=== PATIENT | female | born 1950 | race Hispanic/Latino ===

== ENCOUNTER 2021-05-31 20:10 | Emergency (ER) | payer MEDICARE ==
--- NOTE | 2021-05-31 21:37 | Emergency Department Report ---
ED General Adult HPI - General Chief complaint: Arrhythmia/Palpitations Stated complaint: PALPITATIONS Time Seen by Provider: 05/31/21 21:28 Source: patient, RN notes reviewed, old records reviewed Mode of arrival: Stretcher Limitations: No Limitations - History of Present Illness Initial comments: Cardiology: [facility] Past medical history: Hypertension, hyperlipidemia, asthma, tobacco use, COPD, coronary artery disease This patient is a pleasant 71-year-old female, who presents to the ER today with a complaint of painless sensation of heart racing. It is now resolved. The patient feels like she is at her baseline. Denies travel, surgery, immobilization, DVT/PE risk factors. She has not started any new or different medications. She specifically denies chest pain, new/different shortness of breath, vomiting, diaphoresis. She endorses that she feels like she is back to her baseline -: Sudden Consistency: now resolved Improves with: none Worsens with: none Associated Symptoms: denies other symptoms - Related Data Home Medications Medication Instructions Recorded Confirmed Last Taken Atorvastatin Calcium [Lipitor] 20 mg PO QHS 12/13/14 01/26/15 12/12/14 Budesoni/Formotero 160-4.5(Nf) 2 puff IH BID 12/13/14 01/26/15 12/12/14 [Symbicort 160-4.5 (Nf)] Sertraline [Zoloft] 50 mg PO QDAY 12/13/14 01/26/15 12/11/14 Ranolazine ER [Ranexa ER] 500 mg PO BID 01/26/15 01/26/15 Unknown Previous Rx's Medication Instructions Recorded Last Taken Type Arformoterol Nebu [Brovana Nebu] 15 mcg IH Q12HRT #1 ml 12/23/14 Unknown Rx Aspirin EC [Halfprin EC] 81 mg PO QDAY #30 tablet 12/23/14 Unknown Rx Budesonide [Pulmicort Respules] 0.5 mg IH Q12HRT #1 nebu 12/23/14 Unknown Rx Clopidogrel [Plavix] 75 mg PO QDAY #30 tablet 12/23/14 Unknown Rx Furosemide [Lasix TAB] 40 mg PO QDAY #30 tablet 12/23/14 Unknown Rx ISOSORBIDE MONOnitrate [Imdur ER] 30 mg PO DAILY #30 tab.er.24h 12/23/14 Unknown Rx Metoprolol [Lopressor TAB] 25 mg PO Q12HR #60 tablet 12/23/14 Unknown Rx Potassium Chloride [K-Dur] 20 meq PO QDAY #30 tablet 12/23/14 Unknown Rx lisinopriL [Zestril TAB] 2.5 mg PO QDAY #30 tablet 12/23/14 Unknown Rx Famotidine [Pepcid] 20 mg PO BID #10 tablet 01/26/15 Unknown Rx diphenhydrAMINE [Benadryl CAP] 50 mg PO Q8HR PRN #14 capsule 01/26/15 Unknown Rx Potassium Chloride [K-Dur] 20 meq PO QDAY #30 tab 06/01/21 Unknown Rx Allergies Allergy/AdvReac Type Severity Reaction Status Date / Time No Known Allergies Allergy Unverified 12/13/14 13:16 ED Review of Systems ROS: Stated complaint: PALPITATIONS Other details as noted in HPI Comment: All other systems reviewed and negative Cardiovascular: palpitations ED Past Medical Hx - Past Medical History Previous Medical History?: Yes Hx Hypertension: Yes (7-8 YEARS AGO) Hx Heart Attack/AMI: No Hx Congestive Heart Failure: No Hx Diabetes: No Hx Deep Vein Thrombosis: No Hx Pulmonary Embolism: No Hx Asthma: Yes Hx COPD: Yes Hx Tuberculosis: No - Surgical History Past Surgical History?: Yes Hx Coronary Stent: No Hx Pacemaker: No Hx Internal Defibrillator: No Additional Surgical History: left arm - Social History Smoking Status: Current Every Day Smoker Substance Use Type: None - Medications Home Medications: Home Medications Medication Instructions Recorded Confirmed Last Taken Type Atorvastatin Calcium [Lipitor] 20 mg PO QHS 12/13/14 01/26/15 12/12/14 History Budesoni/Formotero 160-4.5(Nf) 2 puff IH BID 12/13/14 01/26/15 12/12/14 History [Symbicort 160-4.5 (Nf)] Sertraline [Zoloft] 50 mg PO QDAY 12/13/14 01/26/15 12/11/14 History Arformoterol Nebu [Brovana Nebu] 15 mcg IH Q12HRT #1 ml 12/23/14 01/26/15 Unknown Rx Aspirin EC [Halfprin EC] 81 mg PO QDAY #30 tablet 12/23/14 01/26/15 Unknown Rx Budesonide [Pulmicort Respules] 0.5 mg IH Q12HRT #1 nebu 12/23/14 01/26/15 Unknown Rx Clopidogrel [Plavix] 75 mg PO QDAY #30 tablet 12/23/14 01/26/15 Unknown Rx Furosemide [Lasix TAB] 40 mg PO QDAY #30 tablet 12/23/14 01/26/15 Unknown Rx ISOSORBIDE MONOnitrate [Imdur ER] 30 mg PO DAILY #30 tab.er.24h 12/23/14 01/26/15 Unknown Rx Metoprolol [Lopressor TAB] 25 mg PO Q12HR #60 tablet 12/23/14 01/26/15 Unknown Rx Potassium Chloride [K-Dur] 20 meq PO QDAY #30 tablet 12/23/14 01/26/15 Unknown Rx lisinopriL [Zestril TAB] 2.5 mg PO QDAY #30 tablet 12/23/14 01/26/15 Unknown Rx Famotidine [Pepcid] 20 mg PO BID #10 tablet 01/26/15 Unknown Rx Ranolazine ER [Ranexa ER] 500 mg PO BID 01/26/15 01/26/15 Unknown History diphenhydrAMINE [Benadryl CAP] 50 mg PO Q8HR PRN #14 capsule 01/26/15 Unknown Rx Potassium Chloride [K-Dur] 20 meq PO QDAY #30 tab 06/01/21 Unknown Rx ED Physical Exam - General Limitations: No Limitations General appearance: alert, in no apparent distress - Head Head exam: Present: atraumatic, normocephalic - Eye Eye exam: Present: normal appearance, EOMI. Absent: conjunctival injection, nystagmus - ENT ENT exam: Present: normal exam, normal orophraynx, mucous membranes moist, normal external ear exam - Neck Neck exam: Present: normal inspection, full ROM. Absent: tenderness, meningismus - Respiratory Respiratory exam: Present: normal lung sounds bilaterally. Absent: respiratory distress, wheezes, rales, rhonchi, stridor, decreased breath sounds - Cardiovascular Cardiovascular Exam: Present: regular rate, normal rhythm, normal heart sounds. Absent: bradycardia, tachycardia, irregular rhythm, systolic murmur, diastolic murmur, rubs, gallop - GI/Abdominal GI/Abdominal exam: Present: soft. Absent: distended, tenderness, guarding, rebound, rigid, pulsatile mass - Extremities Exam Extremities exam: Present: normal inspection (2+ femoral pulses appreciated bilateral), full ROM, other (2+ pulses noted in the bilateral upper and lower extremities. There is no palpable cord. negative Homans sign. Muscular compartments are soft. The pelvis is stable.). Absent: pedal edema, calf te nderness - Back Exam Back exam: Present: normal inspection. Absent: tenderness, CVA tenderness (R), CVA tenderness (L), paraspinal tenderness, vertebral tenderness - Neurological Exam Neurological exam: Present: alert, oriented X3, other (No facial droop. Tongue midline. Extraocular movements intact bilaterally. Facial sensation intact to light touch in V1, V2, V3 distribution bilaterally. 5 and a 5 strength in 4 extremities. Sensation intact to light touch in 4 extremities.). Absent: motor sensory deficit - Psychiatric Psychiatric exam: Present: normal affect, normal mood - Skin Skin exam: Present: warm, dry, intact, normal color. Absent: rash ED Course Vital Signs 05/31/21 05/31/21 05/31/21 21:03 21:04 21:16 Temperature 98 F Pulse Rate 92 H 83 80 Respiratory 18 16 21 Rate Blood Pressure 145/80 135/57 Blood Pressure [Right] O2 Sat by Pulse 98 96 Oximetry O2 Sat by Pulse Oximetry [ Digit-Finger] 05/31/21 05/31/21 05/31/21 21:30 21:32 21:45 Temperature Pulse Rate 78 76 Respiratory 24 22 Rate Blood Pressure 135/57 145/65 Blood Pressure [Right] O2 Sat by Pulse 97 100 97 Oximetry O2 Sat by Pulse Oximetry [ Digit-Finger] 05/31/21 05/31/21 05/31/21 22:01 22:12 22:15 Temperature Pulse Rate 74 72 Respiratory 18 22 Rate Blood Pressure 153/67 153/67 Blood Pressure [Right] O2 Sat by Pulse 99 100 Oximetry O2 Sat by Pulse 99 Oximetry [ Digit-Finger] 05/31/21 05/31/21 05/31/21 22:31 22:45 22:54 Temperature Pulse Rate 74 70 70 Respiratory 22 20 20 Rate Blood Pressure 153/67 153/67 Blood Pressure 153/67 [Right] O2 Sat by Pulse 99 100 100 Oximetry O2 Sat by Pulse Oximetry [ Digit-Finger] 05/31/21 05/31/21 05/31/21 23:01 23:15 23:31 Temperature Pulse Rate 72 71 68 Respiratory 26 H 24 16 Rate Blood Pressure 133/60 133/60 133/60 Blood Pressure [Right] O2 Sat by Pulse 99 99 99 Oximetry O2 Sat by Pulse Oximetry [ Digit-Finger] 05/31/21 05/31/21 05/31/21 23:35 23:37 23:45 Temperature Pulse Rate 70 68 74 Respiratory 17 16 18 Rate Blood Pressure 133/60 133/60 Blood Pressure 133/60 [Right] O2 Sat by Pulse 99 99 99 Oximetry O2 Sat by Pulse Oximetry [ Digit-Finger] 06/01/21 06/01/21 06/01/21 00:01 00:15 00:31 Temperature Pulse Rate 70 64 68 Respiratory 13 24 21 Rate Blood Pressure 140/54 140/54 140/54 Blood Pressure [Right] O2 Sat by Pulse 100 98 99 Oximetry O2 Sat by Pulse Oximetry [ Digit-Finger] 06/01/21 06/01/21 00:45 00:51 Temperature Pulse Rate 65 65 Respiratory 23 23 Rate Blood Pressure 140/54 Blood Pressure 140/54 [Right] O2 Sat by Pulse 98 98 Oximetry O2 Sat by Pulse Oximetry [ Digit-Finger] - Reevaluation(s) Reevaluation #1: 05/31/21 22:10 Differential diagnosis, including but not limited to: Anemia, electrolyte derangement, thyroid derangement, palpitations Assessment and plan: 71-year-old female, who is currently afebrile, with reassuring vital signs, not currently tachycardic, tachypneic or hypoxic, denies DVT and pulmonary embolism risk factors, who is low risk by Wells criteria for pulmonary embolism, presenting to the ER today with complaint of painless resolved palpitations. Medications reviewed. She is not currently taking any new or different medications. Her EKG is benign and unremarkable. Patient advised that this likely does not represent an emergent medical condition. Check appropriate laboratory studies, maintain patient on cardiac care nurse, and reassess. I discussed this with the patient. She is agreeable to this plan of care 06/01/21 00:55 Laboratory studies are unremarkable. Potassium of 3.4 reviewed and appreciated. Patient observed in this department for hours without clinical decompensation, and she has had stable vital signs. Patient is encouraged to follow-up with her outpatient primary care doctor or freelance court reporter. Return precautions reviewed. All questions answered - Pulse Oximetry Interpretation Digit-Finger Initial Pulse Oximetry Readin O2 Sat by Pulse Oximetry: 99 Actions Taken: none ED Medical Decision Making - Lab Data Result diagrams: 05/31/21 23:24 05/31/21 21:36 Vital Signs 05/31/21 05/31/21 21:03 21:32 Temperature 98 F Pulse Rate 92 H Respiratory 18 Rate Blood Pressure 145/80 O2 Sat by Pulse 98 100 Oximetry - EKG Data -: EKG Interpreted by Ca EKG shows normal: sinus rhythm Rate: normal - EKG Data 05/31/21 22:09 The EKG is interpreted at 20: 47 Motion artifact, sinus rhythm, 84 bpm. Normal axis, normal P wave axis, left ventricular hypertrophy, QTC 4 6 9 ms. This is not a STEMI. Appears grossly unchanged when compared to prehospital EKG. EMS documentation not available at time of chart dictation Critical care attestation.: If time is entered above; I have spent that time in minutes in the direct care of this critically ill patient, excluding procedure time. ED Disposition Clinical Impression: History of palpitations, Hypokalemia Disposition: HOME / SELF CARE / HOMELESS Is pt being admited?: No Does the pt Need Aspirin: No Condition: Good Instructions: Palpitations, [id number] Additional Instructions: Please continue current outpatient medications. Avoid consumption of caffeine, energy drinks, stimulants, Motrin, ibuprofen, Naprosyn, Aleve, make certain to get 7 to 8 hours of good quality uninterrupted sleep each evening, and exercise as tolerated. Recommend follow-up with your primary freelance court reporter within the next 5 to 7 days. Please return to the emergency room right away with new pain, worsened pain, migration of pain, projectile vomiting, change in mental status, confusion, inability tolerate liquid feeds, new, worsened or different symptoms not present on the initial emergency room evaluation Take the potassium supplementation as directed. Alternatively, patient is encouraged to consume foods that are high in potassium, such as banana, avocado, or potato Referrals: [facility], [facility] [Provider Group] - 3-5 Days
[2021-05-31 22:34] LABS: Blood Urea Nitrogen 7 mg/dL (7-17); Calcium 9.3 mg/dL (8.4-10.2); Hemolysis Index 21
[2021-05-31 22:36] LABS: INR 1.03 (0.87-1.13)
[2021-05-31 22:40] LABS: BUN/Creatinine Ratio 18
[2021-05-31] MEDS ORDERED: POTASSIUM CHLORIDE ER 20 MEQ TAB PO ONE (23:30)
[2021-06-01 00:34] LABS: Basophils % (Auto) 0.7 % (0.0-1.8); Eosinophils # (Auto) 0.1 K/mm3 (0.0-0.4); Eosinophils % (Auto) 2.2 % (0.0-4.3); Hematocrit 39.2 % (30.3-42.9); Hemoglobin 12.7 gm/dl (10.1-14.3); Lymphocytes # (Auto) 2.6 K/mm3 (1.2-5.4); Mean Corpuscular HGB Conc 32 % (30-34); Mean Corpuscular Volume 89 fl (79-97); Monocytes # (Auto) 0.6 K/mm3 (0.0-0.8); Monocytes % (Auto) 9.9 % (0.0-7.3); Platelet Count 251 K/mm3 (140-440); Red Blood Count 4.42 M/mm3 (3.65-5.03); Red Cell Distribution Width 14.8 % (13.2-15.2)
[2021-06-01 01:51] VITALS: BP 139/63
[2021-06-01 02:22] LABS: Hemoglobin TNR gm/dl (10.1-14.3); Red Blood Count TNR M/mm3 (3.65-5.03)
[2021-06-01 02:23] LABS: Hematocrit TNR % (30.3-42.9); Mean Corpuscular HGB Conc TNR % (30-34); Mean Corpuscular Volume TNR fl (79-97)
[2021-06-01 02:24] LABS: Lymphocytes % (Auto) TNR % (13.4-35.0); Mean Platelet Volume TNR fl (6-12); Platelet Count TNR K/mm3 (140-440); Red Cell Distribution Width TNR % (13.2-15.2)
[2021-06-01 02:25] LABS: Basophils % (Auto) TNR % (0.0-1.8); Eosinophils % (Auto) TNR % (0.0-4.3); Monocytes % (Auto) TNR % (0.0-7.3)
[2021-06-01 02:26] LABS: Lymphocytes # (Auto) TNR K/mm3 (1.2-5.4)
[2021-06-01 02:27] LABS: Eosinophils # (Auto) TNR K/mm3 (0.0-0.4); Monocytes # (Auto) TNR K/mm3 (0.0-0.8)
[2021-06-01 02:28] LABS: Basophils # (Auto) TNR K/mm3 (0.0-0.1)
== END 2021-06-01 02:04 | disposition home or self-care (01) ==
LOC: ED 20:10
DX: R00.2 Palpitations (principal); E87.6 Hypokalemia; I10 Essential (primary) hypertension; J45.909 Unspecified asthma, uncomplicated; Z79.899 Other long term (current) drug therapy; Z98.890 Other specified postprocedural states; F17.200 Nicotine dependence, unspecified, uncomplicated
CPT/HCPCS: 36415; 80048; 83735; 84443; 85025; 85610; 93005; 99283; 99284